=== PATIENT | male | born 1950 | race Hispanic/Latino ===

== ENCOUNTER → 2018-05-25 | Outpatient (CLI) | payer MEDICARE ==
[~2018-05-25] MED LIST: ALPRAZOLAM0.25 MG PO; CEFTIN500 MG PO; LATANOPROST2.5 ML OP; LEVOTHYROXINE75 MCG PO; LUPRON DEPOT45 MG IM; METOPROLOL SUCC25 MG PO; OMEPRAZOLE40 MG PO; TAMSULOSIN HCL0.4 MG PO
--- NOTE | 2018-05-25 18:26 | Diagnostic Imaging Report ---
EXAM: Scrotal Ultrasound INDICATION: \S\HYDROCELE COMPARISON: Testicular ultrasound 02/17/2017 TECHNIQUE: Transverse and longitudinal images were obtained of the scrotum with grayscale imaging, color Doppler and spectral waveform analysis. FINDINGS: Right testis: Size: 2.9 x 1.9 x 2.7 cm, normal in size. Echogenicity: Heterogeneous Mass/Cysts: Mildly decreased in size of the 2.1 x 0.6 x 1.8 cm hypoechoic area, previously measuring 2.4 x 1.3 x 2.3 cm. Stable 0.1 cm calcification. Left testis: Size: 3.0 x 1.5 x 2.3 cm, normal in size. Echogenicity: Normal Mass/Cysts: None Epididymis: Appearance: Normal in size without increased vascularity. Mass/Cysts: None Extratesticular: Masses: None Fluid collections: None Doppler: Normal color and waveform Doppler arterial and venous flow within the right testes but appears decreased waveform flow on the left testis, which may be due to technique. IMPRESSION: 1. Decreased waveform Doppler flow within the left testis maybe artifactual rather than real decreased flow since the testis is normal in size and homogeneous in appearance and unchanged since 02/17/2017. Consider follow up in 1-2 months if clinical concern. 2. Interval decrease in size of the hypoechoic area in the right testes measuring now up to 2.1 cm compared to 2.4 cm on 02/17/2017. Signed by: Dr. Carmella Huff M.D. on 05/25/2018 6:23 PM
== END ==
LOC: US 16:04
PROVIDERS: ATTEND Urology
DX: N43.3 Hydrocele, unspecified (principal)
CPT/HCPCS: 76870; 93976

== ENCOUNTER → 2018-11-19 | Outpatient (CLI) | payer OTHER ==
--- NOTE | 2018-11-19 18:07 | Diagnostic Imaging Report ---
EXAM: Renal Ultrasound INDICATION: ^[id number] ^[id number] ^CYST OF KIDNEY COMPARISON: None TECHNIQUE: Transverse and longitudinal images of the kidneys and bladder were obtained. FINDINGS: Right Kidney: Size: 11.2 cm, right renal cortex 1.8 cm. Appearance: Normal echogenicity. Collecting system: No hydronephrosis Stones: None Cyst/Mass: None Left Kidney: Size: 11.1 cm, left renal cortex 1.9 cm. Appearance: Normal echogenicity. Collecting system: No hydronephrosis Stones: None Cyst/Mass: 1.8 x 2.0 x 1.5 centimeter cystic, anechoic lesion in the lateral mid aspect. 1.8 x 1.8 x 1.9 cm cystic, anechoic lesion in the mid inferior aspect Bladder: No focal lesions. No wall thickening. IMPRESSION: 1. Normal bilateral renal size and echogenicity. No hydronephrosis, stones or obstruction. 2. 2.0 and 1.9 cm simple cysts in the left kidney. Signed by: Dr. Ferny Valdes M.D. on 11/19/2018 6:04 PM
--- NOTE | 2018-11-19 20:16 | Diagnostic Imaging Report ---
EXAM: Scrotal Ultrasound with Duplex INDICATION: ^HYDROCELE COMPARISON: Testicular ultrasound 02/17/2017 TECHNIQUE: Transverse and longitudinal images were obtained of the scrotum with grayscale imaging, color Doppler and spectral waveform analysis. FINDINGS: Right testis: Size: 3.4 x 1.6 x 2.9 cm, normal in size. Echogenicity: Normal Mass/Cysts: * 2.5 x 1.1 x 2.1 cm hypoechoic area within the right testicle without vascularity. Previously 2.1 x 0.6 x 1.8 cm. * Punctate dystrophic calcification in the inferior aspect. Left testis: Size: 3.2 x 1.5 x 2.6 cm, normal in size. Echogenicity: Normal Mass/Cysts: None Epididymis: Appearance: Right epididymal head measures 0.5 x 0.2 x 0.4 cm. The left epididymal head measures 0.9 x 0.4 x 0.7 cm. Right epididymal body is not well visualized. Mass/Cysts: None Extratesticular: Masses: None Hydrocele: Small bilateral Varicocele: None Doppler: Normal arterial flow to both testes and symmetrical flow on color Doppler evaluation is seen. No evidence of testicular torsion. Arterial flow is not well visualized in the left testicle. IMPRESSION: 1. No evidence of testicular torsion. Persistent decreased flow in the left testes. 2. 2.5 cm hypoechoic lesion within the right testicle. Although there is no significant internal vascularity, this is worrisome for a malignancy. Alternatively this could represent an atypical infiltrate disease such as sarcoidosis. Signed by: Dr. Aba Arboleda M.D. on 11/19/2018 8:13 PM
== END ==
LOC: US 12:44
PROVIDERS: ATTEND Urology
DX: N28.1 Cyst of kidney, acquired (principal); N43.3 Hydrocele, unspecified
CPT/HCPCS: 76770; 76870; 93976

== ENCOUNTER → 2020-09-17 | Outpatient (CLI) | payer MEDICARE | LOC: US 12:49 | PROVIDERS: ATTEND Urology | DX: R31.21 Asymptomatic microscopic hematuria (principal) | CPT/HCPCS: 74018; 76770 ==